=== PATIENT | male | born 1995 | race Caucasian/White ===

== ENCOUNTER 2019-10-24 13:39 | Emergency (ER) | payer MEDICAID ==
[~2019-10-24] VITALS: Ht 177.8 cm; Wt 89.0 kg
[2019-10-24 13:43] VITALS: BP 132/64
== END 2019-10-24 15:33 | disposition home or self-care (01) ==
LOC: ER 13:39
DX: B86 Scabies (principal)
CPT/HCPCS: 99282

== ENCOUNTER 2022-11-22 16:19 | Emergency (ER) | payer MEDICAID ==
[~2022-11-22] VITALS: Ht 175.3 cm; Wt 77.0 kg
[2022-11-22 16:29] VITALS: TEMP 98; O2SAT 100
[2022-11-22] MEDS ORDERED: LIDOCAINE HCL/PF 1% 10 MG/ML 5ML VIAL INFIL ONE (17:15)
[2022-11-22] MEDS: BACITRACIN ZINC OINT UDPKT TOP ONE ×2 (18:11→18:28)
[2022-11-22] MEDS ORDERED: NAPR-681 PO (18:44)
[2022-11-22] MEDS ORDERED: SULF1TAB48 MT (18:44)
[2022-11-22] MEDS ORDERED: CEPH500C2 MT (18:44)
[2022-11-22] MEDS ORDERED: BO1 TP (18:45)
[2022-11-22 18:47] VITALS: BP 107/52; PULSE 84; RESP 20
[2022-11-22] MEDS: IBUPROFEN 600MG TABLET PO STA (18:47)
== END 2022-11-22 19:32 | disposition home or self-care (01) ==
LOC: ER 16:19
DX: L03.312 Cellulitis of back [any part except buttock and flank] (principal)
CPT/HCPCS: 73000; 73030; 73590; 99284